=== PATIENT | female | born 1955 | race Caucasian/White ===

== ENCOUNTER 2018-04-17 07:46 | Day surgery (SDC) | payer OTHER ==
[2018-04-17] MEDS: CEFAZOLIN 2 GM/50 ML (PMX) 50 ML IVPB (06:00)
[2018-04-17] MEDS: SOD CHLORIDE 0.9% 1,000 ML IV (06:00)
[2018-04-17] MEDS ORDERED: LIDOCAINE 2% (SDV) 5 ML INJ (12:07)
[2018-04-17] MEDS ORDERED: ROCURONIUM 50 MG INJ (12:07)
[2018-04-17] MEDS ORDERED: GLYCOPYRROLATE 0.4 MG INJ (12:07)
[2018-04-17] MEDS ORDERED: NEOSTIGMINE 3 MG/3 ML SYRINGE (12:07)
[2018-04-17] MEDS ORDERED: PROPOFOL 20 ML (12:07)
[2018-04-17] MEDS ORDERED: FENTAnyl 50 MCG/ML VIAL (12:08)
[2018-04-17] MEDS ORDERED: MIDAZOLAM 1 MG/ML 2 ML INJ (12:08)
[2018-04-17] MEDS ORDERED: ONDANSETRON 4 MG INJ ×2 (12:08→14:40)
[2018-04-17] MEDS ORDERED: DEXAMETHASONE 4 MG/ML 1 ML INJ (12:08)
[2018-04-17] MEDS ORDERED: ISOSULFAN BLUE 1% 5 ML INJ SC (12:54)
[2018-04-17] MEDS ORDERED: SUCCINYLCHOLINE CHLORIDE 100 MG/5 ML SYG IV (13:18)
[2018-04-17] MEDS ORDERED: CEFAZOLIN 1 GM INJ (13:18)
[2018-04-17] MEDS ORDERED: HYDROCODONE/APAP (7.5/325) TAB PO (14:30)
[2018-04-17] MEDS ORDERED: HYDROmorphONE 1 MG/5 ML IV SYRINGE IV ×2 (14:40→15:00)
[2018-04-17] MEDS: HYDROmorphONE 1 MG/5 ML IV SYRINGE IV ×3 (14:45→14:57)
[2018-04-17] MEDS: ONDANSETRON 4 MG INJ IV (14:46)
[2018-04-17] MEDS: MEPERIDINE 25 MG INJ IV (14:50)
[2018-04-17] MEDS ORDERED: LABETALOL HCL 20MG INJ IV (15:00)
[2018-04-17] MEDS ORDERED: FENTAnyl 50 MCG/ML VIAL IV ×3 (15:00)
[2018-04-17] MEDS ORDERED: EPHEDrine SULFATE 50 MG/5 ML SYG IV (15:00)
[2018-04-17] MEDS ORDERED: hydrALAzine 20 MG INJ IV (15:00)
[2018-04-17] MEDS ORDERED: ALBUTEROL 0.083% (NEB) 2.5 MG/3 ML AMP (15:00)
[2018-04-17] MEDS: ALBUTEROL 0.083% (NEB) 2.5 MG/3 ML AMP HHN (15:18)
[2018-04-17] MEDS: ALBUTEROL/IPRATROPIUM (NEB) 3 ML AMP HHN (16:58)
== END 2018-04-17 17:48 | disposition home or self-care (01) ==
LOC: SDS 07:46
DX: D05.11 Intraductal carcinoma in situ of right breast (principal); E03.9 Hypothyroidism, unspecified
CPT/HCPCS: 19301; 71045; 88307; 94664

== ENCOUNTER 2018-05-29 09:47 | Observation (INO) | payer OTHER ==
[2018-05-29] MEDS: SOD CHLORIDE 0.9% 1,000 ML IV ×2 (10:00→23:20)
[2018-05-29] MEDS ORDERED: ALBUTEROL 0.083% (NEB) 2.5 MG/3 ML AMP HHN (12:00)
[2018-05-29] MEDS ORDERED: ONDANSETRON 4 MG INJ IV ×2 (12:00→13:30)
[2018-05-29] MEDS ORDERED: HYDROmorphONE 1 MG/5 ML IV SYRINGE IV ×3 (12:00)
[2018-05-29] MEDS ORDERED: MEPERIDINE 25 MG INJ IV (12:00)
[2018-05-29] MEDS ORDERED: FENTAnyl 50 MCG/ML VIAL IV ×2 (12:00)
[2018-05-29] MEDS ORDERED: DIPHENHYDRAMINE 50 MG INJ IV (12:00)
[2018-05-29] MEDS ORDERED: FENTAnyl 50 MCG/ML VIAL (12:12)
[2018-05-29] MEDS ORDERED: SUCCINYLCHOLINE CHLORIDE 100 MG/5 ML SYG IV (12:22)
[2018-05-29] MEDS ORDERED: PROPOFOL 20 ML (12:22)
[2018-05-29] MEDS ORDERED: NEOSTIGMINE 3 MG/3 ML SYRINGE (12:22)
[2018-05-29] MEDS ORDERED: CEFAZOLIN 1 GM INJ (12:22)
[2018-05-29] MEDS ORDERED: ROCURONIUM 50 MG INJ (12:22)
[2018-05-29] MEDS: CEFAZOLIN 2 GM/50 ML (PMX) 50 ML IVPB (12:22)
[2018-05-29] MEDS ORDERED: GLYCOPYRROLATE 0.4 MG INJ (12:22)
[2018-05-29] MEDS ORDERED: FAMOTIDINE 20 MG INJ (13:25)
[2018-05-29] MEDS ORDERED: ONDANSETRON 4 MG INJ (13:25)
[2018-05-29] MEDS ORDERED: ACETAMINOPHEN 1000MG/100ML IV 100 ML IVPB (13:30)
[2018-05-29] MEDS ORDERED: morphine 4 MG/ML VIAL IV (13:30)
[2018-05-29] MEDS: METOCLOPRAMIDE 10 MG INJ IV (13:56)
[2018-05-29] MEDS: FENTAnyl 50 MCG/ML VIAL IV (13:56)
[2018-05-29] MEDS ORDERED: HYDROCODONE/APAP (5/325) TAB PO (16:00)
[2018-05-29] MEDS: D5W-0.45 NACL + KCL 20 MEQ 1,000 ML IV ×2 (16:44→21:14)
[2018-05-29] MEDS: ATORVASTATIN 10 MG TAB PO (20:40)
[2018-05-30] MEDS: D5W-0.45 NACL + KCL 20 MEQ 1,000 ML IV ×2 (00:32→13:14)
[2018-05-30] MEDS: LEVOTHYROXINE 50 MCG TAB PO (06:27)
[2018-05-30] MEDS: INFLUENZA VIRUS VACCINE 0.5 ML (DISPENSING) IM* (08:01)
[2018-05-30] MEDS ORDERED: CEPASTAT LOZENGE (12:16)
[2018-05-30] MEDS: SOD CHLORIDE 0.9% 1,000 ML IV (12:40)
[2018-05-30] MEDS: CEPASTAT LOZENGE MT (12:48)
[2018-05-30] MEDS ORDERED: morphine LIQ (10 MG/5 ML) CUP PO (15:00)
[2018-05-30] MEDS: ATORVASTATIN 10 MG TAB PO (20:55)
[2018-05-30] MEDS: ACETAMINOPHEN 325 MG TAB PO (21:17)
[2018-05-31 04:58] LABS: ADD MAN DIFF? NO
[2018-05-31 05:07] LABS: BASOPHILS % 0.2 % (0.0-2.0); EOSINOPHILS # 0.5 10^3/ul (0.0-0.5); EOSINOPHILS % 5.8 % (0.0-7.0); HEMATOCRIT 36.1 % (37.0-47.0); HEMOGLOBIN 11.7 g/dl (12.0-16.0); LYMPHOCYTES # 2.9 10^3/ul (0.8-2.9); LYMPHOCYTES % 33.8 % (15.0-51.0); MEAN CORPUSCULAR HEMOGLOBIN 26.2 pg (29.0-33.0); MEAN CORPUSCULAR HGB CONC 32.4 g/dl (32.0-37.0); MEAN CORPUSCULAR VOLUME 80.9 fl (82.0-101.0); MEAN PLATELET VOLUME 9.7 fl (7.4-10.4); MONOCYTE # 0.9 10^3/ul (0.3-0.9); MONOCYTES % 10.7 % (0.0-11.0); NEUTROPHIL # 4.2 10^3/ul (1.6-7.5); NEUTROPHILS % 49.1 % (39.0-77.0); PLATELET COUNT 299 10^3/UL (140-415); RED BLOOD COUNT 4.46 10^6/ul (4.20-5.40); RED CELL DISTRIBUTION WIDTH 14.5 % (11.5-14.5)
[2018-05-31 05:07] LABS: WHITE BLOOD COUNT 8.4 10^3/ul (4.8-10.8)
[2018-05-31] MEDS: LEVOTHYROXINE 50 MCG TAB PO (06:12)
== END 2018-05-31 15:25 | disposition home or self-care (01) ==
LOC: SDS 09:47 → REC 13:14 → MS1 15:31
PROVIDERS: Surgery Surgical Oncology
DX: N60.91 Unspecified benign mammary dysplasia of right breast (principal); Z85.3 Personal history of malignant neoplasm of breast; I10 Essential (primary) hypertension; E78.5 Hyperlipidemia, unspecified
CPT/HCPCS: 19307; 85025; 88307; 90686; 99217